=== PATIENT | female | born 1985 | race Two or more races ===

== ENCOUNTER 2025-07-16 02:06 | Emergency (ER) | payer OTHER ==
[~2025-07-16] VITALS: Ht 167.6 cm; Wt 86.2 kg
[2025-07-16] MEDS: IBUPROFEN 400 MG TABLET PO ONE (02:33)
[2025-07-16] MEDS ORDERED: IBUPROFEN 400 MG TABLET ONE (02:33)
[2025-07-16] MEDS ORDERED: IBUP-1957 PO (03:11)
[2025-07-16 03:52] VITALS: BP 132/77; TEMP 98.4; O2SAT 99
== END 2025-07-16 03:53 | disposition home or self-care (01) ==
LOC: ER 02:16
DX: M79.645 Pain in left finger(s) (principal); R20.0 Anesthesia of skin; Z91.048 Other nonmedicinal substance allergy status; Z60.2 Problems related to living alone
CPT/HCPCS: 73130-TC